=== PATIENT | female | born 1945 | race Caucasian/White ===

== ENCOUNTER 2016-09-27 08:10 | Day surgery (SDC) | payer MEDICARE, OTHER ==
--- NOTE | ~2016-09-27 | EGD ---
EGD REPORT [facility] [address] [place] [address] NAME: FABIOLA RESTREPO : [birth year] STATUS : REG [facility] [place] PAT#: [id number] AGE: 71 ADM/REG DATE : 09/27/16 MR#: [id number] REPORT SERV DATE: 09/27/16 DICTATED BY: JABARI ARMANDO DATE: 09/27/16 REPORT STATUS : Draft TRANSCRIBED BY: [facility] DATE: 09/27/16 Endoscopy Center Patient Name: Fabiola Restrepo Date of : 1945 Attending MD: JABARI ARMANDO MD Procedure Date No Time: 09/27/2016 Procedure: Colonoscopy Indications: FH of Colonic Polyps - 1st degree relative, Constipation Referring MD: JIA JOHNSON JR. Medicines: as per anesthesia Complications: No immediate complications. Procedure: Pre-Anesthesia Assessment: - ASA Grade Assessment: II - A patient with mild systemic disease. After I obtained informed consent, the scope was passed under direct vision. Throughout the procedure, the patient's blood pressure, pulse, and oxygen saturations were monitored continuously. The PCF [id number] was introduced through the anus and advanced to the cecum, identified by appendiceal orifice and ileocecal valve. The colonoscopy was performed without difficulty. The patient tolerated the procedure. The quality of the bowel preparation was adequate to identify polyps. Findings: The perianal and digital rectal examinations were normal. There was evidence of a prior end-to-end colo-colonic anastomosis in the sigmoid colon. This was patent. This was characterized by healthy appearing mucosa. This was traversed. A few small and large-mouthed diverticula were found in the sigmoid colon and in the descending colon. Internal hemorrhoids were found during endoscopy and were mild. Impression: - Patent end-to-end colo-colonic anastomosis. - Diverticulosis in the sigmoid colon and in the descending colon. - Internal hemorrhoids. Recommendation: - Repeat colonoscopy in 5 years for surveillance. Procedure Code(s): --- Professional --- 22529, Colonoscopy, flexible, proximal to splenic flexure; diagnostic, with or without collection of specimen(s) by brushing or washing, with or without colon decompression (separate procedure) EGD REPORT [facility] [address] [place]. [address] NAME: FABIOLA RESTREPO : [birth year] STATUS : REG [facility] [place] PAT#: [id number] AGE: 71 ADM/REG DATE : 09/27/16 MR#: [id number] REPORT SERV DATE: 09/27/16 DICTATED BY: JABARI ARMANDO. DATE: 09/27/16 REPORT STATUS : Draft TRANSCRIBED BY: [employer] DATE: 09/27/16 Diagnosis Code(s): --- Professional --- Z98.0, Intestinal bypass and anastomosis status K64.8, Other hemorrhoids K57.30, Diverticulosis of large intestine without perforation or abscess without bleeding Z83.71, Family history of colonic polyps K59.00, Constipation, unspecified CPT copyright 2013 [employer]. All rights reserved. The codes documented in this report are preliminary and upon school psychologist review may be revised to meet current compliance requirements. JABARI ARMANDO MD 09/27/2016 11:11 AM This report has been signed electronically. Number of Addenda: 0 Note Initiated On: 09/27/2016 10:41 AM Scope Withdrawal Time 0 hours 7 minutes 19 seconds [address] [place] [address]
[~2016-09-27 08:10] MED LIST: COZAAR100 MG PO; NORV5 PO; SPIRO25 PO
== END 2016-09-27 23:59 | disposition home or self-care (01) ==
LOC: DMU 08:10
PROVIDERS: Internal Medicine Gastroenterology
PROC: 0DJD8ZZ Inspection of Lower Intestinal Tract, Via Natural or Artificial Opening Endoscopic (ICD-10-PCS; principal; 2016-09-27 10:00)
DX: K64.8 Other hemorrhoids (principal); K57.30 Diverticulosis of large intestine without perforation or abscess without bleeding; I10 Essential (primary) hypertension; F32.9 Major depressive disorder, single episode, unspecified; Z83.71 Family history of colonic polyps; Z98.0 Intestinal bypass and anastomosis status; Z90.89 Acquired absence of other organs; Z90.710 Acquired absence of both cervix and uterus; Z90.49 Acquired absence of other specified parts of digestive tract; Z98.890 Other specified postprocedural states